=== PATIENT | female | born 1960 | race Hispanic/Latino ===

== ENCOUNTER → 2025-10-03 | Outpatient (CLI) | payer OTHER ==
--- NOTE | 2025-10-03 21:53 | HMCIMG ---
STUDY: ABDOMINAL ULTRASOUND CLINICAL INFORMATION: Unspecified liver disease. TECHNIQUE: Transabdominal grayscale ultrasound of the abdomen was performed. COMPARISON: None provided. FINDINGS: LIVER: Liver measures approximately 12.0 cm in craniocaudal dimension with coarsened echotexture. No discrete focal hepatic lesion is identified. GALL BLADDER: Gallbladder wall measures approximately 2 mm in thickness and appears normal. No additional abnormality is reported. BILIARY TREE: Common bile duct measures approximately 4 mm in diameter, within normal limits. No intrahepatic biliary dilatation is reported. PANCREAS: Pancreas appears normal where visualized; the tail is obscured. RIGHT KIDNEY: Right kidney measures approximately 10.5 x 4.0 x 4.9 cm with mild fullness of the renal pelvis. Two renal cysts are seen, measuring approximately 1.6 x 1.9 x 1.8 cm and 1.4 x 1.6 x 1.5 cm. LEFT KIDNEY: Left kidney measures approximately 9.6 x 4.8 x 4.7 cm with mild fullness of the renal pelvis. A renal cyst is present, measuring approximately 1.3 x 0.8 x 0.9 cm. SPLEEN: Spleen measures approximately 11.8 x 3.2 x 3.6 cm and appears normal in echotexture. AORTA AND IVC: Visualized abdominal aorta and inferior vena cava appear normal in caliber and contour. OTHER: Remaining visualized abdominal organs and soft tissues appear unremarkable. IMPRESSION: * Coarsened hepatic echotexture, compatible with underlying chronic hepatocellular disease in the appropriate clinical context. * Bilateral renal cysts with mild fullness of the renal pelvises; correlate clinically for possible early or low-grade obstructive uropathy if indicated. * Otherwise unremarkable abdominal ultrasound, including normal gallbladder, biliary tree, spleen, pancreas (tail partially obscured), and visualized major abdominal vessels. /[place]
== END | disposition home or self-care (01) ==
LOC: RAH 08:54
PROVIDERS: ATTEND Internal Medicine Gastroenterology
DX: N28.1 Cyst of kidney, acquired (principal); K76.9 Liver disease, unspecified
CPT/HCPCS: 76700